=== PATIENT | male | born 1995 | race African-American/Black ===

== ENCOUNTER 2018-12-23 17:34 | Emergency (ER) | payer MEDICAID ==
[~2018-12-23] VITALS: Ht 167.6 cm; Wt 70.0 kg
[2018-12-23] MEDS ORDERED: HYDROCODONE/ACETAMINOPHEN 5/325MG TABLET PO ONE (20:00)
[2018-12-23 21:25] VITALS: BP 125/69
== END 2018-12-23 21:28 | disposition home or self-care (01) ==
LOC: ER 17:34
DX: S80.11XA Contusion of right lower leg, initial encounter (principal); M79.604 Pain in right leg; F17.200 Nicotine dependence, unspecified, uncomplicated; W19.XXXA Unspecified fall, initial encounter; Y93.9 Activity, unspecified; Y92.9 Unspecified place or not applicable
CPT/HCPCS: 73552; 99283